=== PATIENT | male | born 1965 | race Caucasian/White ===

== ENCOUNTER 2016-05-31 22:58 | Inpatient (IN) | payer OTHER ==
--- NOTE | 2016-05-31 23:30 | EDPHY ---
H & P Stated Complaint: RUQ abd pain, chills HPI/ROS: HPI CHIEF COMPLAINT: Right upper quadrant abdominal pain, chills, decreased appetite HISTORY OF PRESENT ILLNESS: This patient 50-year-old male denies any significant medical history, no surgical history, does not take any daily medications, presents emergency room with 2-3 days of ongoing right upper quadrant abdominal pain that is now severe with associated chills, decreased appetite and nausea. Denies vomiting, denies recorded fever. He tells me that he cannot get comfortable tonight he has ongoing right upper quadrant pain described as an achy sensation 12/03. He tells me that he tried to sleep tonight however had ongoing right upper quadrant pain the pain was rather severe does denies back pain, sharp or stabbing pain. Past Medical History: No significant medical history Past Surgical History: No significant surgical history specifically no abdominal surgeries Social History: denies use of daily alcohol, drugs, tobacco, endorses occasional alcohol use Family History: Noncontributory ROS REVIEW OF SYSTEMS: A comprehensive 10 point review of systems is otherwise negative aside from elements mentioned in the history of present illness. Exam Constitutional triage nursing summary reviewed, vital signs reviewed, awake/ alert. Eyes normal conjunctivae and sclera, EOMI, PERRLA. HENT normal inspection, atraumatic, moist mucus membranes, no epistaxis, neck supple/ no meningismus, no raccoon eyes. Respiratory clear to auscultation bilaterally, normal breath sounds, no respiratory distress, no wheezing. Cardiovascular tachycardia , regular rhythm, no murmur, no edema, distal pulses normal. Gastrointestinal soft, mild tenderness in the right upper quadrant, on peritoneal signs, normal bowel sounds, no distension, no pulsatile mass. Genitourinary no CVA tenderness. Musculoskeletal no midline vertebral tenderness, full range of motion, no calf swelling, no tenderness of extremities, no meningismus, good pulses, neurovascularly intact. Skin pink, warm, & dry, no rash, skin atraumatic. Neurologic awake, alert and oriented x 3, AAOx3, moves all 4 extremities equally, motor intact, sensory intact, CN II-XII intact, normal cerebellar, normal vision, normal speech. Psychiatric normal mood/affect. Heme/Lymph/Immune no lymphadenopathy. Differential diagnosis includes but is not limited to and in no particular order : Acute cholecystitis, perforated gallbladder, Bowel obstruction, appendicitis, , diverticulitis, colitis, enteritis, perforated viscus, gastritis, GERD, esophagitis, urinary tract infection, pyelonephritis, kidney stones Medical Decision Making: This patient had an IV established will be made NPO he received fluid bolus, will check blood work including CBC, electrolytes, liver enzymes, lipase, lactic acid, he will need ultrasound was right upper quadrant as he is tender significantly in his right upper quadrant without any peritoneal signs. Most likely patient has acute cholecystitis. If his ultrasound is normal patient may need a CT scan to evaluate right-sided abdominal pain including acute appendicitis. Re-evaluation: Ultrasound of the right upper quadrant The results of the study are negative for acute abnormality of the gallbladder I discussed the results of this study with the radiologist Dr. Parsons 1255: re-evaluation patient is still having ongoing right-sided abdominal pain right lower quadrant right upper quadrant, no peritoneal signs, is [place] [id number], I did order him IV Invanz. His ultrasound is back in reveals no acute inflammatory process of the gallbladder. I will proceed with CT abdomen pelvis with IV contrast to rule out acute appendicitis. 0126: CT scan of the abdomen pelvis with IV contrast. The results of the study are this shows acute ruptured appendicitis, appendical with present, 15 mm dilated appendix free fluid around it, and significant inflammatory stranding The study was read by Dr. Holcomb I viewed the images myself on the PACS system. 0127: I did consult Dr. Correa with surgery who is at bedside evaluating the patient at this time. Patient most likely be taken to the operating room for appendectomy. Patient last ate not shows at 7:00 p.m.. He has received 2 L of IV fluid here in the emergency room he is not hypotensive, his white count is noted, lactic less than 2, afebrile, he is resting comfortably he did require multiple rounds of IV Dilaudid for pain control. He is getting 1/3 L at this time. He already has had IV Invanz. Patient is hemodynamically stable to go to the operating room. I will admit to Dr. Correa. Source: Patient - Personal History Current Tetanus/Diphtheria Vaccine: Yes Current Tetanus Diphtheria and Acellular Pertussis (TDAP): Yes Tetanus Vaccine Date: 2015 - Medical/Surgical History Hx Asthma: No Hx Chronic Respiratory Disease: No Hx Diabetes: No Hx Cardiac Disease: No Hx Renal Disease: No Hx Cirrhosis: No Hx Alcoholism: No Hx HIV/AIDS: No Hx Splenectomy or Spleen Trauma: No Other PMH: colonoscopy 05/07/2016, - Social History Smoking Status: Never smoked Constitutional: Initial Vital Signs Temperature (C) 36.6 C 05/31/16 23:18 Heart Rate 112 H 05/31/16 23:18 Respiratory Rate 20 05/31/16 23:18 Blood Pressure 143/83 H 05/31/16 23:18 O2 Sat (%) 92 05/31/16 23:18 O2 Delivery Mode Nasal Cannula O2 (L/minute) 2 Allergies/Adverse Reactions: No Known Allergies Allergy (Unverified 05/31/16 23:18) Home Medications: Medication Instructions Recorded Fish Oil 05/31/16 Medical Decision Making - Data Points Laboratory Results: Laboratory Results 05/31/16 23:30 05/31/16 23:30 05/31/16 23:30 WBC 18.30 H 10^3/uL (3.80-9.50) RBC 4.77 10^6/uL (4.40-6.38) Hgb 15.3 g/dL (13.7-17.5) Hct 43.8 % (40.0-51.0) MCV 91.8 fL (81.5-99.8) MCH 32.1 pg (27.9-34.1) MCHC 34.9 g/dL (32.4-36.7) RDW 12.4 % (11.5-15.2) Plt Count 182 10^3/uL (150-400) MPV 10.1 fL (8.7-11.7) Neut % (Auto) 80.6 H % (39.3-74.2) Lymph % (Auto) 11.2 L % (15.0-45.0) [place] % (Auto) 7.3 % (4.5-13.0) Eos % (Auto) 0.1 L % (0.6-7.6) Baso % (Auto) 0.3 % (0.3-1.7) Nucleat RBC Rel Count 0.0 % (0.0-0.2) Absolute Neuts (auto) 14.74 H 10^3/uL (1.70-6.50) Absolute Lymphs (auto) 2.05 10^3/uL (1.00-3.00) Absolute Monos (auto) 1.33 H 10^3/uL (0.30-0.80) Absolute Eos (auto) 0.02 L 10^3/uL (0.03-0.40) Absolute Basos (auto) 0.06 10^3/uL (0.02-0.10) Absolute Nucleated RBC 0.00 10^3/uL (0-0.01) Immature Gran % 0.5 % (0.0-1.1) Immature Gran # 0.10 10^3/uL (0.00-0.10) PT 13.2 SEC (12.0-15.0) INR 1.01 (0.83-1.16) APTT 30.6 SEC (23.0-38.0) VBG Lactic Acid 1.3 mmol/L (0.7-2.1) Sodium 139 mEq/L (134-144) Potassium 4.3 mEq/L (3.5-5.2) Chloride 106 mEq/L (97-110) Carbon Dioxide 20 L mEq/l (22-31) Anion Gap 13 mEq/L (8-16) BUN 15 mg/dL (7-23) Creatinine 0.9 mg/dL (0.7-1.3) Estimated GFR > 60 Glucose 117 H mg/dL (70-100) Calcium 9.0 mg/dL (8.5-10.4) Total Bilirubin 1.3 mg/dL (0.1-1.4) Conjugated Bilirubin 0.5 mg/dL (0.0-0.5) Unconjugated Bilirubin 0.8 mg/dL (0.0-1.1) AST 27 IU/L (17-59) ALT 49 IU/L (21-72) Alkaline Phosphatase 101 IU/L (38-126) Total Protein 6.9 g/dL (6.3-8.2) Albumin 4.1 g/dL (3.5-5.0) Lipase 55.0 IU/L (23-300) Medications Given: Discontinued Medications Hydromorphone HCl (Dilaudid) 1 mg IVP EDNOW ONE Stop: 05/31/16 23:38 Last Admin: 05/31/16 23:43 Dose: 1 mg Sodium Chloride (Ns) 2,000 mls @ 0 mls/hr IV ONCE ONE PRN Reason: Wide Open Stop: 05/31/16 23:38 Last Admin: 05/31/16 23:40 Dose: 2,000 mls Ertapenem 1 gm/ Sodium (Chloride) 100 mls @ 200 mls/hr IV EDNOW ONE PRN Reason: Protocol Stop: 06/01/16 00:52 Last Admin: 06/01/16 00:40 Dose: 100 mls Ondansetron HCl (Zofran) 4 mg IVP EDNOW ONE Stop: 05/31/16 23:38 Last Admin: 05/31/16 23:41 Dose: 4 mg Departure - Departure Disposition: [facility] Inpatient Acute Clinical Impression: Rupture of appendix Condition: Serious
[2016-05-31] MEDS ORDERED: HYDROmorphONE/DILAUDID 1 MG/ML SYR IVP ONE (23:37)
[2016-05-31] MEDS ORDERED: ONDANSETRON 4 MG/2 ML VIAL IVP ONE (23:37)
[2016-05-31] MEDS ORDERED: NS 2,000 ML IV ONE (23:37)
[2016-05-31 23:45] LABS: % IMMATURE GRANULYOCYTES 0.5 % (0.0-1.1); ADD DIFF? NO; ADD MORPH? NO; ADD SCAN? NO; ATYPICAL LYMPHOCYTE FLAG 0 (0-99); FRAGMENT RBC FLAG 0 (0-99); HEMATOCRIT 43.8 % (40.0-51.0); HEMOGLOBIN 15.3 g/dL (13.7-17.5); LEFT SHIFT FLG 0 (0-99); LIPEMIA HEMOLYSIS FLAG 90 (0-99); MEAN CELL HEMOGLOBIN 32.1 pg (27.9-34.1); MEAN CELL HEMOGLOBIN CONCENTR. 34.9 g/dL (32.4-36.7); MEAN CELL VOLUME 91.8 fL (81.5-99.8); MEAN PLATELET VOLUME 10.1 fL (8.7-11.7); PLATELET CLUMPS FLAG 10 (0-99); PLATELET COUNT 182 10^3/uL (150-400); RED BLOOD CELL COUNT 4.77 10^6/uL (4.40-6.38); RED CELL DISTRIBUTION WIDTH 12.4 % (11.5-15.2)
[2016-05-31 23:52] LABS: INR 1.01 (0.83-1.16); PROTIME(PATIENT) 13.2 SEC (12.0-15.0)
[2016-05-31 23:53] LABS: APTT 30.6 SEC (23.0-38.0)
[2016-06-01 00:17] LABS: ALANINE AMINOTRANSFERASE 49 IU/L (21-72); ALBUMIN 4.1 g/dL (3.5-5.0); ALKALINE PHOSPHATASE 101 IU/L (38-126); ANION GAP 13 mEq/L (8-16); ASPARTATE AMINOTRANSFERASE 27 IU/L (17-59); BILIRUBIN,TOTAL 1.3 mg/dL (0.1-1.4); BILIRUBIN-CONJUGATED 0.5 mg/dL (0.0-0.5); BILIRUBIN-UNCONJUGATED 0.8 mg/dL (0.0-1.1); CARBON DIOXIDE 20 mEq/l (22-31); CHLORIDE 106 mEq/L (97-110); CREATININE 0.9 mg/dL (0.7-1.3); GLOMERULAR FILTRATION RATE > 60; GLUCOSE 117 mg/dL (70-100); POTASSIUM 4.3 mEq/L (3.5-5.2); SODIUM 139 mEq/L (134-144); TOTAL PROTEIN 6.9 g/dL (6.3-8.2)
[2016-06-01] MEDS ORDERED: ERTAPENEM 1 GM in NS 100 ML IV ONE (00:23)
[2016-06-01] MEDS ORDERED: IOPAMIDOL (ISOVUE-300) 50 ML VIAL IV ONE (00:57)
[2016-06-01] MEDS ORDERED: HYDROmorphONE/DILAUDID 1 MG/ML SYR IVP ONE (01:25)
[2016-06-01] MEDS ORDERED: NS 1,000 ML IV ONE (01:25)
[2016-06-01] MEDS ORDERED: BUPIVACAINE/EPI 0.25% 30 ML SDV ONE (01:49)
[2016-06-01] MEDS ORDERED: SKIN ADHESIVE (DERMABOND) 1 EACH TP ONE (01:49)
[2016-06-01] MEDS ORDERED: MIDAZOLAM 2 MG/2 ML VIAL ONE (02:17)
[2016-06-01] MEDS ORDERED: LIDOCAINE 2% 100 MG/5 ML SYR IVP ONE (02:18)
[2016-06-01] MEDS ORDERED: ROCURONIUM 50 MG/5 ML VIAL ONE (02:18)
[2016-06-01] MEDS ORDERED: KETOROLAC 30 MG/1 ML SDV ONE (02:19)
[2016-06-01] MEDS ORDERED: DEXAMETHASONE 4 MG/ML VIAL ONE (02:19)
[2016-06-01] MEDS ORDERED: fentaNYL 100 MCG/2 ML INJ ONE ×4 (02:19→03:58)
[2016-06-01] MEDS ORDERED: SUGAMMADEX SODIUM 200 MG/2 ML VIAL IVP ONE (02:19)
[2016-06-01] MEDS ORDERED: ONDANSETRON 4 MG/2 ML VIAL ONE (02:19)
[2016-06-01] MEDS ORDERED: PROPOFOL 200 MG/20 ML VIAL ONE (02:19)
--- NOTE | 2016-06-01 02:20 | GHP ---
[f rep st] HISTORY AND PHYSICAL DATE OF ADMISSION: 06/01/2016 CHIEF COMPLAINT: Abdominal pain. HISTORY OF PRESENT ILLNESS: This is an otherwise healthy 50-year-old male who presented to the emerg ency department with a 3 day history of right-sided abdominal pain. Initially, he attributed the corry n to some gastroenteritis and put it off. However, over the past few days, the pain has worsened to the point where he is no longer sleeping, which prompted his presentation here. In the emergency dep artment, he does endorse fevers, chills and rigors, and significant right quadrant pain. He initiall y underwent ultrasound as there was concern for cholecystitis, which was found to be normal. However , he did have a CT scan, which shows an inflamed appendix with periappendiceal stranding and concern for perforation. PAST MEDICAL HISTORY: None. PAST SURGICAL HISTORY: Colonoscopy 2 weeks ago where he had polypectomy x3. MEDICATIONS: Currently none. ALLERGIES: None. REVIEW OF SYSTEMS: A full 10-point review was performed and unless explicitly stated above is otherw ise negative. PHYSICAL EXAM: VITAL SIGNS: Temperature 36.7, heart rate 102, blood pressure 126/86, he is 95% on 2 L. GENERAL: He is alert and oriented, mild distress. CV: He is tachycardic, normotensive without any murmurs. LUNGS: Clear to auscultation. ABDOMEN: Soft, distended, tender to palpation signifi cantly in the right lower quadrant with rebound tenderness and guarding. EXTREMITIES: Warm and well perfused. LABORATORY DATA: Significant for leukocytosis at 18,000. The remainder of his chemistries are unrem arkable. CT scan was performed, which shows a dilated fluid-filled appendix with fecalith in the rig ht lower quadrant with associated fluid and stranding concerning for perforated appendicitis. ASSESSMENT AND PLAN: A 50-year-old male, question of perforated appendicitis. I had a long discussi on with the patient regarding his diagnosis. Given his physical exam and CT scan findings, I think i t is prudent to proceed to the operating room this evening for laparoscopic appendectomy; as I feel t hat he has a concerning abdominal exam. I discussed with him the anticipated hospital course, especi ally given the fact that it is more than likely perforated, and the fact that he may be here a couple of days recovering. He understands this and wishes to proceed. /[id number]/MODL
[2016-06-01] MEDS ORDERED: ONDANSETRON 4 MG/2 ML VIAL IVP PRN (03:47)
[2016-06-01] MEDS ORDERED: MAGNESIUM HYDROXIDE 30 ML UDCUP PO PRN (03:47)
--- NOTE | 2016-06-01 03:47 | POSTOPPROG ---
Post Op Note Date of Operation: 06/01/16 Surgeon: Sid Correa Anesthesiologist: James Anesthesia: GET(General Endotracheal) Pre-op Diagnosis: Perforated appendicitis Post-op Diagnosis: same Procedure: Laparoscopic appendectomy Findings: Perforation mid-body Inf/Abcess present in the surg proc area at time of surgery?: Yes Depth: Organ Space EBL: Minimal Specimen(s): Appendix
[2016-06-01] MEDS: D5W 1/2 NS W/ 20 KCl/L 1,000 ML IV SCH ×2 (04:53→15:50)
[2016-06-01] MEDS: HYDROmorphONE/DILAUDID 1 MG/ML SYR IVP PRN ×2 (07:12→15:50)
--- NOTE | 2016-06-01 07:15 | US ---
Right Upper Quadrant Abdominal Sonogram History: Possible gallstones, RUQ pain Findings: There are no gallstones, gallbladder wall thickening or pericholecystic fluid. The liver, r ight kidney and common duct are normal. There is no ascites. The visualized aorta and IVC are normal. The pancreas is secured by bowel gas. Impression: No source for right upper quadrant pain identified. Results discussed with Dr. Zhao at 12:50 a.m.
[2016-06-01] MEDS: ERTAPENEM 1 GM in NS 100 ML IV SCH (07:52)
--- NOTE | 2016-06-01 07:57 | CT ---
CT Scan of the Abdomen and Pelvis (With Contrast) 0110 hours History: Right-sided abdominal pain. Leukocytosis. Technique: Axial computed tomographic images of the abdomen and pelvis were obtained with the unevent ful intravenous administration of 98 mL Isovue-300 contrast. No oral or rectal contrast which limits the study. Dose reduction techniques were utilized. CT Abdomen Findings: Lung bases: Minimal atelectasis or scarring bilateral lower lobes. Liver: Normal. Biliary system: No obstruction. Spleen: Normal. Pancreas: Normal. Adrenals: Normal. Kidneys: No obstruction or solid masses. Abdominal Aorta: No aneurysm. Thickening of the appendix up to 15 mm with appendicolith, periappendiceal inflammatory changes, and focal surrounding fluid collection measuring 3.5 x 2.5 cm consistent with acute appendicitis with per foration. No pneumoperitoneum. No bowel obstruction. CT Pelvis Findings: No additional pelvic fluid collections. Impression: 1. Acute appendicitis with appendicoliths and adjacent fluid collection consistent with rupture or po ssible early abscess formation. 2. No pneumoperitoneum or bowel obstruction. Findings and recommendations discussed with Emergency Department physician, Dr. Zhao, at 0116 hour s today. Final report concurs with initial preliminary interpretation.
[2016-06-01] MEDS: HYDROCODONE/APAP 5/325 TAB PO PRN ×3 (08:24→18:25)
--- NOTE | 2016-06-01 12:17 | SOAPPROG ---
SOAP Progress Note Assessment/Plan: Assessment/Plan: - 50yo M POD#1 s/p lap appy for perforated appendicitis - Pain appropriately controlled, still having chills but improved from previous. - Cont IV abx given otoniel perforation - OK for clears, anticipate ileus given amt of contamination - await mor erobust bowel function and more reassuring exam before advancing diet but patient anxious to go home 06/01/16 12:16 Subjective: Doing ok, tolerating clears, passing flatus Objective: Vital Signs Temp Pulse Resp BP Pulse Ox 36.6 C 89 16 100/68 91 L 06/01/16 08:45 06/01/16 08:45 06/01/16 08:45 06/01/16 08:45 06/01/16 08:53 Microbiology 06/01/16 02:50 Gram Stain - Final Peritoneal Fluid - Aspirate 05/31/16 06/01/16 06/02/16 05:59 05:59 05:59 Intake Total 3700 Output Total 10 400 Balance 3690 -400 PT 13.2 SEC (12.0-15.0) 05/31/16 23:30 INR 1.01 (0.83-1.16) 05/31/16 23:30 ICD10 Worksheet Patient Problems: Problems Problem Status Diagnosed Ruptured appendix Acute
[2016-06-02] MEDS: D5W 1/2 NS W/ 20 KCl/L 1,000 ML IV SCH ×3 (01:53→22:29)
[2016-06-02] MEDS: HYDROCODONE/APAP 5/325 TAB PO PRN ×4 (02:46→21:24)
[2016-06-02] MEDS ORDERED: NS 500 ML IV ONE (03:22)
--- NOTE | 2016-06-02 03:40 | SOAPPROG ---
SOAP Progress Note Assessment/Plan: Assessment: Called by nursing about orange/red urine without clots. Checked with Pharmacy - no medication should cause color change but Ertapenem does cause hematuria in 1-5% of patients. Could not find documentation as to if a cerna had been used. VVS and urine output good. Plan: Will fluid bolus and check UA and CBC 06/02/16 03:36 Objective: Vital Signs Temp Pulse Resp BP Pulse Ox 36.8 C 106 H 20 110/68 92 06/02/16 02:27 06/02/16 02:27 06/02/16 02:27 06/02/16 00:18 06/02/16 02:27 Microbiology 06/01/16 02:50 Gram Stain - Final Peritoneal Fluid - Aspirate 05/31/16 06/01/16 06/02/16 05:59 05:59 05:59 Intake Total 3700 2719 Output Total 10 800 Balance 3690 1919 PT 13.2 SEC (12.0-15.0) 05/31/16 23:30 INR 1.01 (0.83-1.16) 05/31/16 23:30 ICD10 Worksheet Patient Problems: Problems Problem Status Diagnosed Ruptured appendix Acute
[2016-06-02 06:10] LABS: COLOR YELLOW; LEUKOCYTE ESTERASE,URINE NEGATIVE (NEGATIVE); NITRITE,URINE NEGATIVE (NEGATIVE)
[2016-06-02 06:17] LABS: MUCUS TRACE /lpf (NONE-1+)
[2016-06-02] MEDS: ERTAPENEM 1 GM in NS 100 ML IV SCH (08:26)
[2016-06-02 08:59] LABS: HEMOGLOBIN 11.6 g/dL (13.7-17.5); MEAN CELL HEMOGLOBIN 31.7 pg (27.9-34.1); MEAN CELL HEMOGLOBIN CONCENTR. 32.2 g/dL (32.4-36.7); MEAN CELL VOLUME 98.4 fL (81.5-99.8); RED BLOOD CELL COUNT 3.66 10^6/uL (4.40-6.38); RED CELL DISTRIBUTION WIDTH 12.8 % (11.5-15.2)
--- NOTE | 2016-06-02 09:12 | SOAPPROG ---
SOAP Progress Note Assessment/Plan: Assessment: 50yo male s/p kobi appy, perforated had orange to red colored urine this AM, Dr Malloy called, UA pending. Pt reports had further urine that appeared clearer. Some upper crampy intermittent ab pain. On Invanz. PE awake comfortable abdomen mild distension, soft nontender Plan: regular diet change to oral ABX Saturday possibly home Saturday if doing great. encouraged ambulation in amato fu labs 06/02/16 09:10 Objective: Vital Signs Temp Pulse Resp BP Pulse Ox 37.2 C 89 18 111/64 92 06/02/16 08:00 06/02/16 08:00 06/02/16 08:00 06/02/16 08:00 06/02/16 08:00 Microbiology 06/01/16 02:50 Gram Stain - Final Peritoneal Fluid - Aspirate 06/01/16 06/02/16 06/03/16 05:59 05:59 05:59 Intake Total 3700 3069 Output Total 10 800 Balance 3690 2269 PT 13.2 SEC (12.0-15.0) 05/31/16 23:30 INR 1.01 (0.83-1.16) 05/31/16 23:30 ICD10 Worksheet Patient Problems: Problems Problem Status Diagnosed Ruptured appendix Acute
[2016-06-03] MEDS: HYDROCODONE/APAP 5/325 TAB PO PRN (03:18)
[2016-06-03 03:36] LABS: COLOR YELLOW; LEUKOCYTE ESTERASE,URINE NEGATIVE (NEGATIVE); NITRITE,URINE NEGATIVE (NEGATIVE)
[2016-06-03 03:44] LABS: RBC,URINE 15-25 /hpf (0-3)
--- NOTE | 2016-06-03 06:18 | SOAPPROG ---
SOAP Progress Note Assessment/Plan: Assessment: 50yo male s/p kobi appy, perforated had orange to red colored urine this AM, Dr Malloy called, UA pending. Pt reports had further urine that appeared clearer. Some upper crampy intermittent ab pain. On Invanz. PE awake comfortable abdomen mild distension, soft nontender Plan: regular diet change to oral ABX Saturday possibly home Saturday if doing great. encouraged ambulation in amato fu labs 06/02/16 09:10 06/03/16 06:17 Tolerating regular diet, no fevers but has some sweats when initially moving around, wants to go home. U/A negative yesterday. PE awake. comfortable abdomen soft nontender, incisions dry Plan check CBC, possible home later if doing well. 06/03/16 09:53 Objective: Vital Signs Temp Pulse Resp BP Pulse Ox 36.6 C 95 20 125/78 H 92 06/03/16 03:10 06/03/16 03:10 06/03/16 03:10 06/03/16 03:10 06/03/16 03:10 Microbiology 06/01/16 02:50 Gram Stain - Final Peritoneal Fluid - Aspirate Laboratory Results 06/02/16 08:36 06/02/16 06/03/16 06/04/16 05:59 05:59 05:59 Intake Total 3069 1850 Output Total 800 Balance 2269 1850 PT 13.2 SEC (12.0-15.0) 05/31/16 23:30 INR 1.01 (0.83-1.16) 05/31/16 23:30 ICD10 Worksheet Patient Problems: Problems Problem Status Diagnosed Ruptured appendix Acute
[2016-06-03 08:04] VITALS: BP 119/75; PULSE 85; RESP 18; TEMP 98.9; O2SAT 89
[2016-06-03 08:11] LABS: % IMMATURE GRANULYOCYTES 1.1 % (0.0-1.1); ABSOLUTE IMMATURE GRANULOCYTES 0.11 10^3/uL (0.00-0.10); ADD DIFF? NO; ADD MORPH? NO; ADD SCAN? NO; ATYPICAL LYMPHOCYTE FLAG 20 (0-99); FRAGMENT RBC FLAG 0 (0-99); HEMATOCRIT 33.7 % (40.0-51.0); HEMOGLOBIN 11.4 g/dL (13.7-17.5); LEFT SHIFT FLG 40 (0-99); LIPEMIA HEMOLYSIS FLAG 90 (0-99); MEAN CELL HEMOGLOBIN 32.8 pg (27.9-34.1); MEAN CELL HEMOGLOBIN CONCENTR. 33.8 g/dL (32.4-36.7); MEAN CELL VOLUME 96.8 fL (81.5-99.8); MEAN PLATELET VOLUME 10.1 fL (8.7-11.7); PLATELET CLUMPS FLAG 0 (0-99); PLATELET COUNT 149 10^3/uL (150-400); RED BLOOD CELL COUNT 3.48 10^6/uL (4.40-6.38); RED CELL DISTRIBUTION WIDTH 12.8 % (11.5-15.2)
[2016-06-03] MEDS: D5W 1/2 NS W/ 20 KCl/L 1,000 ML IV SCH (08:28)
[2016-06-03] MEDS ORDERED: AMOXICILLIN/CLAVULANATE POT 875/125 MG TAB PO SCH (09:00)
--- NOTE | 2016-06-04 11:34 | GOP ---
[f rep st] OPERATIVE REPORT DATE OF OPERATION: 06/01/2016 SURGEON: Sid Correa MD SOFTWARE QUALITY TESTER: None ANESTHESIA: General endotracheal per Dr. Ramirez. PREOPERATIVE DIAGNOSIS: Perforated appendicitis. POSTOPERATIVE DIAGNOSIS: Perforated appendicitis. PROCEDURE PERFORMED: Laparoscopic appendectomy. FINDINGS: Appendix had perforated the midbody and was walled off in the retrocecal position. The ba se appeared unaffected. SPECIMENS: Appendix. ESTIMATED BLOOD LOSS: 5 cc. DESCRIPTION OF PROCEDURE: The patient was greeted in the preoperative suite. Once again, risks, natalio efits, and alternatives were discussed. He was then brought back to the operative suite, placed on t he OR table in supine position. After all anesthesia machines, including SCDs, were on and functioni ng, a world [employer] time-out was performed, ending with all in agreement. Antibiotics we re given on-call to the operating room. General endotracheal anesthesia was then induced without inc ident. The patient's abdomen was then widely prepped and draped in typical sterile fashion. I enter ed the abdomen using the Veress needle technique in the left upper quadrant and insufflated with CO2 to 15 mmHg, which was well tolerated by the patient. I entered the abdomen using the [employer] Platformiport techni que in the infraumbilical space using a 0 degree laparoscoped. Once successfully in the abdomen, I p laced 2 additional 5 mm trocars, 1 in the suprapubic and 1 in the left lower quadrant, both under dir ect visualization. Using this, I identified the appendix by tracing the taeniae inferiorly again, as the CT scan had showed preoperatively that the appendix was retrocecal and appeared to have a perfor ation in the midbody. I mobilized the white line somewhat to better further visualize the appendix i tself. Once I was able to successfully bring the appendix out of the retroperitoneum, I identified t he base. I made a window using a Sheron dissector and amputated the base of the appendix with a sin gle fire of a blue load Endo-REJI stapler. In the same fashion, using a white load this time, I stapl ed off the mesoappendix, noting excellent hemostasis. The appendix was then removed using an EndoCat ch bag. I turned my attention toward the area where the perforation had appeared. It was localized well walled-off. I irrigated with 1 L of warm normal saline, noting clear effluent in the suction ca nister and no gross peritoneal staining. I elected not to place a drain. I did bring down the oment um and pack it into the area. I instilled local anesthetic into all port sites which were then remov ed under direct visualization and the pneumoperitoneum evacuated. I closed my fascial defect with a single interrupted 0 Vicryl stitch in a [id number] fashion, noting excellent fascial reapproxima tion. The skin was closed with 4-0 Monocryl, over which Dermabond was placed. The patient tolerated the procedure well, was extubated and taken to the PACU in satisfactory condition. DRAINS: None. COUNTS: All counts were reported as correct x2. /[id number]/MODL
== END 2016-06-03 11:41 | disposition home or self-care (01) | DRG 340 ==
LOC: F3E 06-01 04:30
PROVIDERS: ADMIT Surgery; ATTEND Surgery
PROC: 0DTJ4ZZ Resection of Appendix, Percutaneous Endoscopic Approach (ICD-10-PCS; principal; 2016-06-01 05:15)
DX: K35.3 Acute appendicitis with localized peritonitis (principal)
CPT/HCPCS: 96365; J1100; J1170; J1335; J1885; J2001; J2250; J2405; J2704; J3010; Q9967

== ENCOUNTER → 2018-04-09 | Outpatient (CLI) | payer OTHER | LOC: FIMAGING 09:51 | PROVIDERS: ATTEND Family Medicine | DX: R10.11 Right upper quadrant pain (principal); R10.12 Left upper quadrant pain; Z90.49 Acquired absence of other specified parts of digestive tract ==